=== PATIENT | male | born 1970 | race African-American/Black ===

== ENCOUNTER 2017-07-04 13:39 | Emergency (ER) | payer OTHER ==
[~2017-07-04] VITALS: Ht 188 cm; Wt 103.7 kg
[~2017-07-04 13:39] MED LIST: NOHOMEMEDS; VALIUM5 MG PO
[2017-07-04 16:07] LABS: HEMATOCRIT 39.6 % (38.0-50.0); MCH 29.8 PG (29.0-34.0); MCHC 33.6 G/DL (30.0-36.0); MCV 88.8 FL (86-99); MEAN PLAT.VOLUME 9.8 uM^3 (9.0-12.4); PLATELET COUNT 213 K/uL (156-360); RBC DIS.WIDTH-CV 13.7 % (11.8-14.6); RBC DIS.WIDTH-SD 44.4 % (39-53); RED BLOOD COUNT 4.46 M/uL (4.00-5.50); WHITE BLOOD COUNT 5.8 K/uL (4.1-10.2)
[2017-07-04 16:21] LABS: CHLORIDE 108 mEq/L (99-109)
[2017-07-04 16:22] LABS: SODIUM 140 mEq/L (136-147)
[2017-07-04 16:24] LABS: GLUCOSE 78 mg/dL (70-99)
[2017-07-04 16:25] LABS: ANION GAP 11 MEQ/L (2-14)
[2017-07-04 16:26] LABS: TOTAL BILIRUBIN 0.5 mg/dL (0.0-1.0)
[2017-07-04 16:27] LABS: ALKALINE PHOSPHATASE 73 IU/L (3-129); GFR ESTIMATE (CALCULATED) > 59 mL/min/
[2017-07-04 16:29] LABS: UREA NITROGEN (BUN) 12 mg/dL (9-23)
[2017-07-04 16:30] LABS: CREATINE KINASE 524 IU/L (1-294); TOTAL CK 524 IU/L (1-294)
[2017-07-04 16:37] LABS: CK-MB 1.7 ng/mL (0.0-4.9)
[2017-07-04 16:51] LABS: ADD MIUA? YES; BILIRUBIN NEGATIVE; BLOOD SMALL; COLOR YELLOW ((YELLOW)); GLUCOSE (STRIP) NEGATIVE; KETONES NEGATIVE; LEUKOCYTES NEGATIVE; NITRITE NEGATIVE; PROTEIN (STRIP) NEGATIVE; UROBILINOGEN 0.2 MG/DL (0.2-1.0)
[2017-07-04 16:53] LABS: BACTERIA NONE SEEN /HPF; EPITHELIAL CELLS NONE SEEN /HPF; MUCUS NONE SEEN /LPF; RED BLOOD CELLS 0-5 /HPF (0-5); UCUL ADDED? NO; WHITE BLOOD CELLS 0-5 /HPF (0-5)
[2017-07-04 18:24] LABS: TROP-I INTERPRETATION NEGATIVE; TROPONIN-I < 0.01 ng/mL (0.0-0.30)
[2017-07-04 18:54] VITALS: BP 177/114
== END 2017-07-04 18:55 | disposition home or self-care (01) ==
LOC: EME 13:39
PROVIDERS: Physician Assistant
DX: M62.82 Rhabdomyolysis (principal); F17.200 Nicotine dependence, unspecified, uncomplicated
CPT/HCPCS: 80053; 81003; 82550; 82553; 84484; 85027; 93005; 99281; 99284; J7030